=== PATIENT | female | born 1950 | race Caucasian/White ===

== ENCOUNTER → 2016-08-29 | Outpatient (CLI) | payer OTHER | LOC: CIMAGING 13:47 | PROVIDERS: ATTEND Family Medicine | DX: K80.20 Calculus of gallbladder without cholecystitis without obstruction (principal); E01.0 Iodine-deficiency related diffuse (endemic) goiter; R91.8 Other nonspecific abnormal finding of lung field | CPT/HCPCS: 71250-PO ==